=== PATIENT | female | born 1950 | race Caucasian/White ===

== ENCOUNTER → 2019-08-26 | Outpatient (CLI) | payer OTHER ==
[2019-08-26 05:00] LABS: Albumin, Blood 2.5 g/dL (3.4-5.0); Prealbumin, Blood 18.8 mg/dL (20.0-40.0)
== END | disposition home or self-care (01) ==
LOC: LAB UVN 04:35 → EDSTATUS 11:18
PROVIDERS: Family Medicine
DX: L89.154 Pressure ulcer of sacral region, stage 4 (principal)
CPT/HCPCS: 82040; 84134

== ENCOUNTER 2019-10-22 00:26 | Day surgery (SDC) | payer OTHER | END 2019-10-22 22:35 | disposition home or self-care (01) | LOC: WOUND 00:26 | DX: L89.154 Pressure ulcer of sacral region, stage 4 (principal); M86.9 Osteomyelitis, unspecified; I10 Essential (primary) hypertension; Z85.3 Personal history of malignant neoplasm of breast | CPT/HCPCS: G0463 ==